=== PATIENT | male | born 1950 | race Caucasian/White ===

== ENCOUNTER → 2016-05-27 | Outpatient (CLI) | payer MEDICARE ==
[~2016-05-27] MED LIST: ACET-1757 PO; ACET325T14 PO; ASPI325T4 PO; AZIT-14 PO; CEFD300C2 PO; DIGO125T PO; DILT120C11 PO; DILT120T3 PO; DOXY100T PO; FLUT1AER INH; FLUT1DIS3 INH; GUAI-103 PO; GUAI100L11 PO; GUAI12003 PO; GUAI5SYR PO; HYDR12.53 PO; LISI-170 PO; LISI1TAB5 PO; LISI2.5T PO; LISI5TAB7 PO; OMEP-110 PO; PRED10TA PO; RIVA20TA PO
== END | disposition home or self-care (01) ==
LOC: ROC 08:35
PROVIDERS: ATTEND Radiology Radiation Oncology
DX: C34.12 Malignant neoplasm of upper lobe, left bronchus or lung (principal); C34.11 Malignant neoplasm of upper lobe, right bronchus or lung; R91.1 Solitary pulmonary nodule; J44.9 Chronic obstructive pulmonary disease, unspecified; I50.9 Heart failure, unspecified; R59.0 Localized enlarged lymph nodes; F17.200 Nicotine dependence, unspecified, uncomplicated
CPT/HCPCS: G0463

== ENCOUNTER → 2016-06-01 | Outpatient (CLI) | payer MEDICARE | END | disposition home or self-care (01) | LOC: PETCFH 08:15 | PROVIDERS: ATTEND Radiology Radiation Oncology | DX: C34.11 Malignant neoplasm of upper lobe, right bronchus or lung (principal); R59.0 Localized enlarged lymph nodes; R91.8 Other nonspecific abnormal finding of lung field; K82.8 Other specified diseases of gallbladder; N20.0 Calculus of kidney; E27.8 Other specified disorders of adrenal gland | CPT/HCPCS: 78815; A9552 ==

== ENCOUNTER 2016-07-08 05:56 | Day surgery (SDC) | payer MEDICARE ==
[~2016-07-08] VITALS: Ht 177.8 cm; Wt 68.0 kg
[~2016-07-08 05:56] MED LIST changes: -AZIT-14 PO; +AZIT250T89 PO; -CEFD300C2 PO; +CEFD300C37 PO
[2016-07-08 07:18] VITALS: BP 138/85
[2016-07-08] MEDS ORDERED: SODIUM CHLORIDE 0.9% 1,000 ML IV SCH (07:20)
[2016-07-08] MEDS ORDERED: MIDAZOLAM 1 MG/ML, 5ML ONE (08:11)
[2016-07-08] MEDS ORDERED: FENTANYL PF 100 MCG/2ML ONE (08:12)
[2016-07-08] MEDS ORDERED: NALOXONE 1 MG/ML, 2ML ONE (08:12)
== END 2016-07-08 11:35 | disposition home or self-care (01) ==
LOC: OUT 05:56
PROVIDERS: ATTEND Internal Medicine Hematology & Oncology
DX: C34.31 Malignant neoplasm of lower lobe, right bronchus or lung (principal); I10 Essential (primary) hypertension; I48.91 Unspecified atrial fibrillation; F17.210 Nicotine dependence, cigarettes, uncomplicated
CPT/HCPCS: 32405; 71010; 77012; 88305; 88341; 88342; 99156; 99157; J2250; J3010; J7030; G0461; J2310

== ENCOUNTER → 2016-11-01 | Outpatient (CLI) | payer MEDICARE ==
[~2016-11-01] MED LIST changes: +ASPI325T17 PO; -ASPI325T4 PO; +OMNIPAQUE 350 MG/ML, 100ML BOTTLE ONE
== END | disposition home or self-care (01) ==
LOC: CFH 09:38
PROVIDERS: ATTEND Internal Medicine Hematology & Oncology
DX: C34.31 Malignant neoplasm of lower lobe, right bronchus or lung (principal); R59.0 Localized enlarged lymph nodes
CPT/HCPCS: 71260; 74177; 82565; Q9967

== ENCOUNTER → 2016-11-25 | Outpatient (CLI) | payer MEDICARE ==
[~2016-11-25] MED LIST changes: +ATOR40TA78 PO; -OMNIPAQUE 350 MG/ML, 100ML BOTTLE ONE; +UMEC1DIS INH
== END | disposition home or self-care (01) ==
LOC: STAR 08:10
PROVIDERS: ATTEND Otolaryngology
DX: Z01.818 Encounter for other preprocedural examination (principal); J38.01 Paralysis of vocal cords and larynx, unilateral
CPT/HCPCS: 93005

== ENCOUNTER 2016-11-29 10:00 | Day surgery (SDC) | payer MEDICARE ==
[~2016-11-29] VITALS: Ht 177.8 cm; Wt 64.9 kg
[2016-11-29] MEDS ORDERED: LACTATED RINGERS 1,000 ML IV SCH (10:32)
[2016-11-29 10:37] VITALS: BP 125/82
[2016-11-29] MEDS ORDERED: EPINEPHRINE TOPICAL SOLN 1 MG/ML, 30ML ONE (11:56)
[2016-11-29] MEDS ORDERED: MIDAZOLAM 1 MG/ML, 5ML ONE (12:17)
[2016-11-29] MEDS ORDERED: ONDANSETRON 2MG/ML, 2ML ONE (12:17)
[2016-11-29] MEDS ORDERED: PROPOFOL 10 MG/ML, 20ML ONE (12:17)
[2016-11-29] MEDS ORDERED: SUCCINYLCHOLINE 20 MG/ML, 10ML ONE (12:17)
[2016-11-29] MEDS ORDERED: DEXAMETHASONE 4 MG/ML, 1ML ONE ×2 (12:25)
[2016-11-29] MEDS ORDERED: ALBUTEROL SULFATE 2.5 MG/3 ML NPPB PRN (13:00)
[2016-11-29] MEDS ORDERED: MIDAZOLAM 1 MG/ML, 2ML IV PRN (13:00)
[2016-11-29] MEDS ORDERED: ACETAMINOPHEN 325 MG TABLET PO PRN (13:00)
[2016-11-29] MEDS ORDERED: MEPERIDINE/PF 25MG/0.5ML IVPush PRN (13:00)
[2016-11-29] MEDS ORDERED: HYDROmorphone 1 MG/ML, 1ML IV PRN (13:00)
[2016-11-29] MEDS ORDERED: OXYcodone 5 MG/5 ML ORAL.SOL UDC PO PRN (13:00)
[2016-11-29] MEDS ORDERED: ONDANSETRON 2MG/ML, 2ML IVPush PRN (13:00)
[2016-11-29] MEDS ORDERED: FENTANYL PF 100 MCG/2ML IV PRN (13:00)
[2016-11-29] MEDS ORDERED: hydrALAzine 20 MG/ML, 1ML IV PRN (13:00)
[2016-11-29] MEDS ORDERED: PROMETHAZINE 25 MG/ML, 1ML IV PRN (13:00)
[2016-11-29] MEDS ORDERED: LABETALOL 5MG/ML, 20ML IV PRN (13:00)
== END 2016-11-29 14:42 ==
LOC: OUT 10:00
PROVIDERS: ATTEND Otolaryngology
DX: J38.01 Paralysis of vocal cords and larynx, unilateral (principal); C32.0 Malignant neoplasm of glottis; J98.59 Other diseases of mediastinum, not elsewhere classified; J44.9 Chronic obstructive pulmonary disease, unspecified; K21.9 Gastro-esophageal reflux disease without esophagitis
CPT/HCPCS: 31571; C1878; J0330; J1100; J2250; J2405; J2704

== ENCOUNTER → 2017-01-10 | Outpatient (CLI) | payer MEDICARE ==
[~2017-01-10] MED LIST changes: +OMNIPAQUE 350 MG/ML, 75ML BOTTLE ONE
== END | disposition home or self-care (01) ==
LOC: CFH 12:20
PROVIDERS: ATTEND Internal Medicine Hematology & Oncology
DX: C34.90 Malignant neoplasm of unspecified part of unspecified bronchus or lung (principal); J98.11 Atelectasis; I70.0 Atherosclerosis of aorta; R59.0 Localized enlarged lymph nodes; K76.0 Fatty (change of) liver, not elsewhere classified; M51.36 Other intervertebral disc degeneration, lumbar region
CPT/HCPCS: 71260; Q9967

== ENCOUNTER 2017-02-16 10:06 | Day surgery (SDC) | payer MEDICARE ==
[~2017-02-16] VITALS: Ht 177.8 cm; Wt 62.9 kg
[~2017-02-16 10:06] MED LIST changes: -OMNIPAQUE 350 MG/ML, 75ML BOTTLE ONE
[2017-02-16] MEDS ORDERED: LACTATED RINGERS 1,000 ML IV SCH (10:32)
[2017-02-16] MEDS ORDERED: EPINEPHRINE TOPICAL SOLN 1 MG/ML, 30ML ONE (10:33)
[2017-02-16 10:35] VITALS: BP 143/80
[2017-02-16] MEDS ORDERED: LIDOCAINE 1%, 2ML SQ PRN (11:00)
[2017-02-16] MEDS ORDERED: PROPOFOL 10 MG/ML, 20ML ONE (12:06)
[2017-02-16] MEDS ORDERED: ONDANSETRON 2MG/ML, 2ML ONE (12:06)
[2017-02-16] MEDS ORDERED: ALBUTEROL SULFATE 2.5 MG/3 ML NPPB PRN (13:00)
[2017-02-16] MEDS ORDERED: OXYcodone 5 MG/5 ML ORAL.SOL UDC PO PRN (13:00)
[2017-02-16] MEDS ORDERED: HYDROmorphone 1 MG/ML, 1ML IV PRN (13:00)
[2017-02-16] MEDS ORDERED: FENTANYL PF 100 MCG/2ML IV PRN (13:00)
[2017-02-16] MEDS ORDERED: ACETAMINOPHEN 325 MG TABLET PO PRN (13:00)
[2017-02-16] MEDS ORDERED: ONDANSETRON 2MG/ML, 2ML IVPush PRN (13:00)
[2017-02-16] MEDS ORDERED: ACETAMINOPHEN 650 MG/20.3 ML UDC ONE (13:19)
== END 2017-02-16 14:15 ==
LOC: OUT 10:06
PROVIDERS: ATTEND Otolaryngology
DX: J38.01 Paralysis of vocal cords and larynx, unilateral (principal); J38.3 Other diseases of vocal cords; I10 Essential (primary) hypertension; Z85.118 Personal history of other malignant neoplasm of bronchus and lung
CPT/HCPCS: 31570; C1878; J2405; J2704; J7120

== ENCOUNTER 2017-09-10 15:40 | Inpatient (IN) | payer MEDICARE ==
[~2017-09-10] VITALS: Ht 177.8 cm; Wt 68.5 kg
[2017-09-10] MEDS ORDERED: HYDROmorphone 2 MG/ML, 1ML ONE (16:45)
[2017-09-10] MEDS ORDERED: ONDANSETRON ODT 4 MG ONE (16:45)
[2017-09-10] MEDS ORDERED: ONDANSETRON ODT 4 MG PO ONE (17:00)
[2017-09-10] MEDS ORDERED: HYDROmorphone 1 MG/ML, 1ML IM ONE (17:00)
[2017-09-10 17:42] LABS: MEAN CORPUSCULAR HEMOGLOBIN 29.5 pg (27.5-34.5); MEAN CORPUSCULAR HGB CONC 33.6 g/dL (33.2-36.2); MEAN CORPUSCULAR VOLUME 87.6 fL (81-97); MEAN PLATELET VOLUME 8.2 fL (7.4-10.4); PLATELET COUNT 291 x10^3/uL (130-400); RED BLOOD COUNT 3.34 x10^6/uL (4.38-5.82); RED CELL DISTRIBUTION WIDTH 18.7 % (9.4-14.8)
[2017-09-10 17:49] LABS: ANION GAP 8 mmol/L (5-15); CALCIUM 8.6 mg/dL (8.5-10.1); CHLORIDE 95 mmol/L (98-107)
[2017-09-10 18:13] LABS: BASOPHILS # (AUTO) 0.06 x10^3/uL (0-0.1); BASOPHILS % (AUTO) 0 % (0-1); C-REACTIVE PROTEIN, QUANT > 19.00 mg/dL (0.02-0.49); EOSINOPHILS # (AUTO) 0.08 x10^3/uL (0-0.4); EOSINOPHILS % (AUTO) 0 % (1-7); LYMPHOCYTES # (AUTO) 0.76 x10^3/uL (1-3.4); LYMPHOCYTES % (AUTO) 4 % (22-44); MD MORPH REVIEW ONLY; MONOCYTES % (AUTO) 10 % (2-9); NEUTROPHILS # (AUTO) 16.21 x10^3/uL (1.8-6.8); NEUTROPHILS % (AUTO) 86 % (42-75); OVALOCYTES 1+; TARGET CELLS 1+
[2017-09-10 18:14] LABS: HYPOCHROMIA 1+
[2017-09-10 18:18] LABS: HCT (SEDRATE) 29.3 % (39.2-51.8)
[2017-09-10 18:22] LABS: <PLATELET ESTIMATE> ADEQUATE; <PLT MORPHOLOGY> NORMAL PLT MORPH
[2017-09-10] MEDS ORDERED: FENTANYL PF 100 MCG/2ML ONE (20:12)
[2017-09-10] MEDS ORDERED: FENTANYL PF 100 MCG/2ML IVPush ONE (20:30)
[2017-09-10] MEDS ORDERED: ENALAPRILAT 1.25 MG/ML, 2ML IVPush PRN (21:00)
[2017-09-10] MEDS ORDERED: ACETAMINOPHEN 325 MG TABLET PO PRN (21:00)
[2017-09-10] MEDS ORDERED: ONDANSETRON 2MG/ML, 2ML IVPush PRN (21:00)
[2017-09-10] MEDS ORDERED: LABETALOL 5MG/ML, 20ML IVPush PRN (21:00)
[2017-09-10] MEDS ORDERED: DOCUSATE 100 MG CAPSULE PO PRN (21:00)
[2017-09-10] MEDS ORDERED: BISACODYL 10 MG SUPP PR PRN (21:00)
[2017-09-10] MEDS: SODIUM CHLORIDE 0.9% 1,000 ML IV SCH (22:59)
[2017-09-10] MEDS: NICOTINE 7 MG/24 HR PATCH.TD24 TD SCH (23:02)
[2017-09-10] MEDS: ATORVASTATIN 40 MG TABLET PO SCH (23:03)
[2017-09-10 23:15] VITALS: BP 106/62
[2017-09-10] MEDS: morphine SULFATE 10 MG/ML, 1ML IVPush PRN (23:39)
[2017-09-11 00:13] LABS: ALANINE AMINOTRANSFERASE 21 U/L (12-78); ALBUMIN 2.6 g/dL (3.4-5.0); ANION GAP 8 mmol/L (5-15); CALCIUM 8.4 mg/dL (8.5-10.1); CHLORIDE 96 mmol/L (98-107); CREATININE 0.73 mg/dL (0.7-1.3)
[2017-09-11 00:15] LABS: ALKALINE PHOSPHATASE 78 U/L (45-117); BILIRUBIN,TOTAL 0.4 mg/dL (0.2-1.0); TOTAL PROTEIN 5.4 g/dL (6.4-8.2)
[2017-09-11] MEDS: DILTIAZEM 120 MG TABLET PO SCH ×3 (00:19→20:56)
[2017-09-11 00:30] VITALS: BP 108/63
[2017-09-11] MEDS: morphine SULFATE 10 MG/ML, 1ML IVPush PRN ×5 (04:19→20:57)
[2017-09-11 05:52] LABS: MEAN CORPUSCULAR HEMOGLOBIN 29.8 pg (27.5-34.5); MEAN CORPUSCULAR HGB CONC 33.9 g/dL (33.2-36.2); MEAN CORPUSCULAR VOLUME 87.9 fL (81-97); MEAN PLATELET VOLUME 8.6 fL (7.4-10.4); PLATELET COUNT 273 x10^3/uL (130-400); RED BLOOD COUNT 3.04 x10^6/uL (4.38-5.82); RED CELL DISTRIBUTION WIDTH 18.5 % (9.4-14.8)
[2017-09-11 06:30] LABS: BASOPHILS % (AUTO) 0 % (0-1); EOSINOPHILS # (AUTO) 0.33 x10^3/uL (0-0.4); EOSINOPHILS % (AUTO) 2 % (1-7); LYMPHOCYTES % (AUTO) 6 % (22-44); MD SCAN; MONOCYTES # (AUTO) 2.28 x10^3/uL (0.2-0.8); MONOCYTES % (AUTO) 14 % (2-9); NEUTROPHILS # (AUTO) 12.91 x10^3/uL (1.8-6.8); NEUTROPHILS % (AUTO) 78 % (42-75)
[2017-09-11 07:11] VITALS: BP 91/67
[2017-09-11] MEDS ORDERED: RIVAROXABAN 20 MG TABLET PO SCH (09:00)
[2017-09-11 10:06] LABS: MICROSCOPIC AUTO
[2017-09-11 10:07] LABS: CULTURE INDICATED? NO
[2017-09-11] MEDS: SENNA/DOCUSATE TABLET PO SCH (10:23)
[2017-09-11] MEDS: OMEPRAZOLE 20 MG CAPSULE.DR PO SCH (10:24)
[2017-09-11] MEDS ORDERED: GADOBUTROL 7.5 MMOL/7.5 ML PFS ONE (11:35)
[2017-09-11] MEDS: OXYcodone/APAP 5/325MG TABLET PO PRN ×2 (11:59→18:52)
[2017-09-11 13:11] VITALS: BP 89/43
[2017-09-11] MEDS: SODIUM CHLORIDE 0.9% 1,000 ML IV SCH (17:01)
[2017-09-11] MEDS: ONDANSETRON ODT 4 MG PO PRN (17:05)
[2017-09-11 19:58] VITALS: BP 98/58
[2017-09-11] MEDS: ATORVASTATIN 40 MG TABLET PO SCH (20:56)
[2017-09-11] MEDS: NICOTINE 7 MG/24 HR PATCH.TD24 TD SCH (20:57)
[2017-09-12] MEDS: morphine SULFATE 10 MG/ML, 1ML IVPush PRN ×6 (00:27→18:30)
[2017-09-12 01:14] VITALS: BP 93/50
[2017-09-12] MEDS: SODIUM CHLORIDE 0.9% 1,000 ML IV SCH ×3 (06:35→20:53)
[2017-09-12 07:37] VITALS: BP 93/48
[2017-09-12] MEDS: OMEPRAZOLE 20 MG CAPSULE.DR PO SCH (08:08)
[2017-09-12] MEDS: DILTIAZEM 120 MG TABLET PO SCH ×2 (08:08→20:53)
[2017-09-12] MEDS: SENNA/DOCUSATE TABLET PO SCH (08:09)
[2017-09-12] MEDS: ONDANSETRON ODT 4 MG PO PRN ×2 (08:14→17:10)
[2017-09-12 09:14] LABS: ANION GAP 6 mmol/L (5-15); CALCIUM 7.9 mg/dL (8.5-10.1); CHLORIDE 100 mmol/L (98-107); CREATININE 0.75 mg/dL (0.7-1.3)
[2017-09-12 09:15] LABS: ALBUMIN 2.5 g/dL (3.4-5.0)
[2017-09-12 09:19] LABS: MEAN CORPUSCULAR HEMOGLOBIN 29.9 pg (27.5-34.5); PLATELET COUNT 254 x10^3/uL (130-400); RED BLOOD COUNT 2.95 x10^6/uL (4.38-5.82)
[2017-09-12 10:20] LABS: BASOPHILS # (AUTO) 0.01 x10^3/uL (0-0.1); BASOPHILS % (AUTO) 0 % (0-1); EOSINOPHILS # (AUTO) 0.12 x10^3/uL (0-0.4); EOSINOPHILS % (AUTO) 1 % (1-7); LYMPHOCYTES # (AUTO) 0.49 x10^3/uL (1-3.4); LYMPHOCYTES % (AUTO) 3 % (22-44); MD SCAN; MONOCYTES # (AUTO) 1.43 x10^3/uL (0.2-0.8); MONOCYTES % (AUTO) 9 % (2-9); NEUTROPHILS # (AUTO) 13.95 x10^3/uL (1.8-6.8); NEUTROPHILS % (AUTO) 87 % (42-75)
[2017-09-12] MEDS: OXYcodone/APAP 5/325MG TABLET PO PRN ×3 (10:26→20:53)
[2017-09-12] MEDS: BENZONATATE 100 MG CAPSULE PO SCH ×3 (11:29→20:53)
[2017-09-12 13:23] VITALS: BP 106/54
[2017-09-12 20:48] VITALS: BP 126/68
[2017-09-12] MEDS: ATORVASTATIN 40 MG TABLET PO SCH (20:53)
[2017-09-12] MEDS: NICOTINE 7 MG/24 HR PATCH.TD24 TD SCH (20:59)
[2017-09-13 01:37] VITALS: BP 122/74
[2017-09-13] MEDS: morphine SULFATE 10 MG/ML, 1ML IVPush PRN ×5 (01:51→20:13)
[2017-09-13 07:01] VITALS: BP 100/52
[2017-09-13] MEDS: DILTIAZEM 120 MG TABLET PO SCH (07:41)
[2017-09-13] MEDS: SENNA/DOCUSATE TABLET PO SCH (07:42)
[2017-09-13] MEDS: BENZONATATE 100 MG CAPSULE PO SCH ×3 (07:42→21:00)
[2017-09-13] MEDS: ONDANSETRON ODT 4 MG PO PRN ×2 (07:42→12:11)
[2017-09-13] MEDS: OMEPRAZOLE 20 MG CAPSULE.DR PO SCH (07:42)
[2017-09-13] MEDS: OXYcodone/APAP 5/325MG TABLET PO PRN ×3 (07:42→20:35)
[2017-09-13] MEDS: DILTIAZEM 120 MG CAP.ER.24H PO SCH (09:00)
[2017-09-13 13:25] VITALS: BP 105/55
[2017-09-13] MEDS ORDERED: MIDAZOLAM 1 MG/ML, 2ML ONE (16:18)
[2017-09-13] MEDS ORDERED: WATER-INJECTION,STERILE 10 ML IV ONE (16:19)
[2017-09-13] MEDS ORDERED: FENTANYL PF 250 MCG/5ML ONE (16:19)
[2017-09-13] MEDS ORDERED: PROPOFOL 10 MG/ML, 20ML ONE (16:19)
[2017-09-13] MEDS ORDERED: NEOSTIGMINE 1 MG/ML, 10ML ONE (16:19)
[2017-09-13] MEDS ORDERED: GLYCOPYRROLATE 0.4 MG/2 ML, 2ML ONE ×2 (16:19→17:22)
[2017-09-13] MEDS ORDERED: ROCURONIUM 10MG/ML,5ML ONE (16:19)
[2017-09-13] MEDS ORDERED: CEFAZOLIN 1,000 MG ONE ×2 (16:20)
[2017-09-13] MEDS ORDERED: LABETALOL 5MG/ML, 20ML IV PRN (16:30)
[2017-09-13] MEDS ORDERED: PROMETHAZINE 12.5 MG SUPP PR PRN (16:30)
[2017-09-13] MEDS ORDERED: MEPERIDINE/PF 25MG/0.5ML IVPush PRN (16:30)
[2017-09-13] MEDS ORDERED: hydrALAzine 20 MG/ML, 1ML IV PRN (16:30)
[2017-09-13] MEDS ORDERED: ONDANSETRON ODT 8 MG PO PRN (16:30)
[2017-09-13] MEDS ORDERED: ACETAMINOPHEN 325 MG TABLET PO PRN (16:30)
[2017-09-13] MEDS ORDERED: PROMETHAZINE 25 MG SUPP PR PRN (16:30)
[2017-09-13] MEDS ORDERED: ALBUTEROL SULFATE 2.5 MG/3 ML NPPB PRN (16:30)
[2017-09-13] MEDS ORDERED: MORPHINE SULFATE 4 MG/ML, 1ML IVPush PRN (16:30)
[2017-09-13] MEDS ORDERED: HYDROmorphone 1 MG/ML, 1ML IV PRN (16:30)
[2017-09-13] MEDS ORDERED: OXYcodone 5 MG/5 ML ORAL.SOL UDC PO PRN (16:30)
[2017-09-13] MEDS ORDERED: ONDANSETRON 2MG/ML, 2ML IV PRN (16:30)
[2017-09-13] MEDS ORDERED: PROMETHAZINE 25 MG/ML, 1ML IV PRN (16:30)
[2017-09-13] MEDS ORDERED: ACETAMINOPHEN 650 MG/20.3 ML UDC ONE (18:13)
[2017-09-13] MEDS ORDERED: FENTANYL PF 100 MCG/2ML ONE (18:16)
[2017-09-13] MEDS: FENTANYL PF 100 MCG/2ML IV PRN ×3 (18:25→19:00)
[2017-09-13] MEDS ORDERED: OXYcodone 5 MG/5 ML ORAL.SOL UDC ONE (19:06)
[2017-09-13] MEDS: SODIUM CHLORIDE 0.9% 1,000 ML IV SCH (20:15)
[2017-09-13] MEDS: NICOTINE 7 MG/24 HR PATCH.TD24 TD SCH (21:00)
[2017-09-13] MEDS ORDERED: FENTANYL PF 100 MCG/2ML IVPush PRN (23:30)
[2017-09-14] MEDS: ALBUTEROL/IPRATROPIUM 2.5MG/0.5MG, 3 ML NPPB SCH ×4 (02:17→10:26)
[2017-09-14] MEDS: OXYcodone/APAP 5/325MG TABLET PO PRN ×3 (03:06→11:49)
[2017-09-14] MEDS: FENTANYL PF 100 MCG/2ML IV PRN (04:55)
[2017-09-14] MEDS: DILTIAZEM 120 MG CAP.ER.24H PO SCH (08:45)
[2017-09-14] MEDS: OMEPRAZOLE 20 MG CAPSULE.DR PO SCH (08:45)
[2017-09-14] MEDS: SENNA/DOCUSATE TABLET PO SCH (08:45)
[2017-09-14] MEDS: BENZONATATE 100 MG CAPSULE PO SCH ×3 (08:45→20:19)
[2017-09-14] MEDS: morphine SULFATE 10 MG/ML, 1ML IVPush PRN ×2 (08:45→13:18)
[2017-09-14] MEDS ORDERED: TAMSULOSIN 0.4 MG CAP.ER.24H PO ONE (09:00)
[2017-09-14] MEDS: CEFAZOLIN PMX 2GM/50ML 50 ML IVPB SCH ×2 (09:02→17:02)
[2017-09-14] MEDS ORDERED: SODIUM CHLORIDE 0.9%, 500ML IVBOLUS ONE (11:00)
[2017-09-14] MEDS ORDERED: ALBUTEROL/IPRATROPIUM 2.5MG/0.5MG, 3 ML NPPB SCH (11:00)
[2017-09-14] MEDS: SODIUM CHLORIDE 0.9% 1,000 ML IV SCH (11:03)
[2017-09-14 12:05] LABS: MEAN CORPUSCULAR HEMOGLOBIN 28.2 pg (27.5-34.5); MEAN CORPUSCULAR HGB CONC 32.3 g/dL (33.2-36.2); MEAN CORPUSCULAR VOLUME 87.5 fL (81-97); MEAN PLATELET VOLUME 7.5 fL (7.4-10.4); PLATELET COUNT 245 x10^3/uL (130-400); RED BLOOD COUNT 2.59 x10^6/uL (4.38-5.82)
[2017-09-14 12:06] LABS: HEMOGRAM NOTE RECHECKED
[2017-09-14 12:08] LABS: ANION GAP 7 mmol/L (5-15); CALCIUM 7.6 mg/dL (8.5-10.1); CHLORIDE 104 mmol/L (98-107)
[2017-09-14 12:28] LABS: BASOPHILS % (AUTO) 0 % (0-1); EOSINOPHILS # (AUTO) 0.09 x10^3/uL (0-0.4); EOSINOPHILS % (AUTO) 1 % (1-7); LYMPHOCYTES # (AUTO) 0.43 x10^3/uL (1-3.4); LYMPHOCYTES % (AUTO) 3 % (22-44); MD SCAN; MONOCYTES # (AUTO) 1.97 x10^3/uL (0.2-0.8); MONOCYTES % (AUTO) 11 % (2-9); NEUTROPHILS # (AUTO) 14.77 x10^3/uL (1.8-6.8); NEUTROPHILS % (AUTO) 86 % (42-75)
[2017-09-14] MEDS ORDERED: FENTANYL PF 100 MCG/2ML IVPush PRN (12:30)
[2017-09-14] MEDS ORDERED: FENTANYL 75 MCG PATCH TD SCH (13:30)
[2017-09-14 15:10] VITALS: BP 94/52
[2017-09-14] MEDS ORDERED: FUROSEMIDE 20 MG/2 ML ONE ×2 (15:19→16:13)
[2017-09-14 15:32] VITALS: BP 101/56
[2017-09-14] MEDS: FENTANYL 1500 MCG/30 ML PCA IV PRN (16:17)
[2017-09-14] MEDS ORDERED: FUROSEMIDE 20 MG/2 ML IV ONE ×2 (16:30→18:00)
[2017-09-14 17:01] VITALS: BP 107/62
[2017-09-14] MEDS ORDERED: ENOXAPARIN 40 MG/0.4 ML SQ SCH (18:00)
[2017-09-14] MEDS ORDERED: DIGOXIN 0.25 MG/ML, 2ML ONE (18:37)
[2017-09-14] MEDS ORDERED: DIGOXIN 0.25 MG/ML, 2ML IVPush ONE (19:00)
[2017-09-15] MEDS: CEFAZOLIN PMX 2GM/50ML 50 ML IVPB SCH ×2 (00:03→07:55)
[2017-09-15] MEDS: SODIUM CHLORIDE 0.9% 1,000 ML IV SCH (00:04)
[2017-09-15] MEDS ORDERED: DIGOXIN 0.25 MG/ML, 2ML IVPush ONE (01:00)
[2017-09-15] MEDS: ALBUTEROL/IPRATROPIUM 2.5MG/0.5MG, 3 ML NPPB PRN (02:10)
[2017-09-15 04:00] VITALS: BP 109/49
[2017-09-15 04:50] LABS: MEAN CORPUSCULAR HEMOGLOBIN 28.7 pg (27.5-34.5); MEAN CORPUSCULAR HGB CONC 32.7 g/dL (33.2-36.2); MEAN PLATELET VOLUME 8.1 fL (7.4-10.4); PLATELET COUNT 241 x10^3/uL (130-400); RED BLOOD COUNT 3.05 x10^6/uL (4.38-5.82); RED CELL DISTRIBUTION WIDTH 16.9 % (9.4-14.8)
[2017-09-15 04:58] LABS: ALBUMIN 2.2 g/dL (3.4-5.0); ANION GAP 6 mmol/L (5-15); CHLORIDE 101 mmol/L (98-107)
[2017-09-15 05:09] LABS: BASOPHILS % (AUTO) 0 % (0-1); EOSINOPHILS # (AUTO) 0.11 x10^3/uL (0-0.4); EOSINOPHILS % (AUTO) 1 % (1-7); LYMPHOCYTES # (AUTO) 0.53 x10^3/uL (1-3.4); LYMPHOCYTES % (AUTO) 3 % (22-44); MD SCAN; MONOCYTES # (AUTO) 1.75 x10^3/uL (0.2-0.8); MONOCYTES % (AUTO) 9 % (2-9); NEUTROPHILS # (AUTO) 16.95 x10^3/uL (1.8-6.8); NEUTROPHILS % (AUTO) 88 % (42-75)
[2017-09-15 05:14] LABS: ALANINE AMINOTRANSFERASE 16 U/L (12-78); ALKALINE PHOSPHATASE 87 U/L (45-117); BILIRUBIN,TOTAL 0.4 mg/dL (0.2-1.0); CREATININE 0.84 mg/dL (0.7-1.3); TOTAL PROTEIN 5.4 g/dL (6.4-8.2)
[2017-09-15] MEDS ORDERED: MAGNESIUM SULFATE PMX 4GM/100M 100 ML IVPB ONE (07:30)
[2017-09-15] MEDS: DILTIAZEM 120 MG CAP.ER.24H PO SCH (07:55)
[2017-09-15] MEDS: BENZONATATE 100 MG CAPSULE PO SCH ×3 (07:56→21:20)
[2017-09-15] MEDS: OMEPRAZOLE 20 MG CAPSULE.DR PO SCH (07:56)
[2017-09-15] MEDS: TAMSULOSIN 0.4 MG CAP.ER.24H PO SCH (07:56)
[2017-09-15] MEDS: SENNA/DOCUSATE TABLET PO SCH ×2 (07:56→21:20)
[2017-09-15] MEDS ORDERED: BISACODYL 10 MG SUPP PR PRN (08:30)
[2017-09-15] MEDS ORDERED: LACTULOSE 20 GM/30 ML UDC PO PRN (09:00)
[2017-09-15] MEDS: DOCUSATE 50 MG/5 ML, 10ML UDC NG SCH (09:00)
[2017-09-15] MEDS: DOCUSATE 100 MG CAPSULE PO SCH (09:59)
[2017-09-15] MEDS: DIGOXIN 0.25 MG TABLET PO SCH (09:59)
[2017-09-15] MEDS: FUROSEMIDE 20 MG/2 ML IV SCH (11:31)
[2017-09-15] MEDS: DEXAMETHASONE 1 MG TABLET PO SCH (18:52)
[2017-09-15] MEDS: SENNOSIDES 8.8 MG/5 ML ORAL SOL NG SCH (21:00)
[2017-09-15] MEDS: FENTANYL 1500 MCG/30 ML PCA IV PRN (21:22)
[2017-09-16 04:00] VITALS: BP 112/56
[2017-09-16 04:57] LABS: ALBUMIN 2.1 g/dL (3.4-5.0); ANION GAP 5 mmol/L (5-15); CALCIUM 7.9 mg/dL (8.5-10.1); CHLORIDE 97 mmol/L (98-107)
[2017-09-16 05:01] LABS: ALANINE AMINOTRANSFERASE 13 U/L (12-78); ALKALINE PHOSPHATASE 88 U/L (45-117); BILIRUBIN,TOTAL 0.4 mg/dL (0.2-1.0); CREATININE 0.56 mg/dL (0.7-1.3); TOTAL PROTEIN 5.5 g/dL (6.4-8.2)
[2017-09-16 05:03] LABS: MEAN CORPUSCULAR HEMOGLOBIN 29.1 pg (27.5-34.5); MEAN CORPUSCULAR VOLUME 88.3 fL (81-97); MEAN PLATELET VOLUME 8.1 fL (7.4-10.4); PLATELET COUNT 275 x10^3/uL (130-400); RED BLOOD COUNT 2.91 x10^6/uL (4.38-5.82); RED CELL DISTRIBUTION WIDTH 17.2 % (9.4-14.8)
[2017-09-16 05:42] LABS: BASOPHILS % (AUTO) 0 % (0-1); EOSINOPHILS # (AUTO) 0.01 x10^3/uL (0-0.4); EOSINOPHILS % (AUTO) 0 % (1-7); LYMPHOCYTES # (AUTO) 0.61 x10^3/uL (1-3.4); LYMPHOCYTES % (AUTO) 3 % (22-44); MD SCAN; MONOCYTES # (AUTO) 0.53 x10^3/uL (0.2-0.8); MONOCYTES % (AUTO) 3 % (2-9); NEUTROPHILS # (AUTO) 19.82 x10^3/uL (1.8-6.8); NEUTROPHILS % (AUTO) 95 % (42-75)
[2017-09-16] MEDS: OMEPRAZOLE 20 MG CAPSULE.DR PO SCH (08:57)
[2017-09-16] MEDS: FUROSEMIDE 20 MG/2 ML IV SCH (08:57)
[2017-09-16] MEDS: DOCUSATE 100 MG CAPSULE PO SCH (08:57)
[2017-09-16] MEDS: DIGOXIN 0.25 MG TABLET PO SCH (08:57)
[2017-09-16] MEDS: TAMSULOSIN 0.4 MG CAP.ER.24H PO SCH (08:57)
[2017-09-16] MEDS: DEXAMETHASONE 1 MG TABLET PO SCH ×2 (08:57→17:11)
[2017-09-16] MEDS: KETOROLAC 30 MG/1 ML IV PRN ×3 (08:58→21:20)
[2017-09-16] MEDS: SENNA/DOCUSATE TABLET PO SCH ×2 (08:58→21:20)
[2017-09-16] MEDS: BENZONATATE 100 MG CAPSULE PO SCH ×3 (08:58→21:19)
[2017-09-16] MEDS: DILTIAZEM 120 MG CAP.ER.24H PO SCH (08:59)
[2017-09-16] MEDS: DOCUSATE 50 MG/5 ML, 10ML UDC NG SCH (08:59)
[2017-09-16] MEDS ORDERED: FENTANYL PF 100 MCG/2ML IVPush PRN (11:30)
[2017-09-16 13:40] VITALS: BP 146/72
[2017-09-16] MEDS: SENNOSIDES 8.8 MG/5 ML ORAL SOL NG SCH (21:00)
[2017-09-16 21:30] VITALS: BP 134/71
[2017-09-16] MEDS: ALBUTEROL/IPRATROPIUM 2.5MG/0.5MG, 3 ML NPPB PRN (22:08)
[2017-09-17 01:20] VITALS: BP 117/49
[2017-09-17 05:41] LABS: MEAN CORPUSCULAR HEMOGLOBIN 29.2 pg (27.5-34.5); MEAN CORPUSCULAR HGB CONC 32.9 g/dL (33.2-36.2); MEAN CORPUSCULAR VOLUME 88.8 fL (81-97); MEAN PLATELET VOLUME 7.9 fL (7.4-10.4); PLATELET COUNT 339 x10^3/uL (130-400); RED BLOOD COUNT 3.29 x10^6/uL (4.38-5.82); RED CELL DISTRIBUTION WIDTH 17.1 % (9.4-14.8)
[2017-09-17 06:28] LABS: BASOPHILS % (AUTO) 0 % (0-1); EOSINOPHILS # (AUTO) 0.01 x10^3/uL (0-0.4); EOSINOPHILS % (AUTO) 0 % (1-7); LYMPHOCYTES # (AUTO) 0.38 x10^3/uL (1-3.4); LYMPHOCYTES % (AUTO) 2 % (22-44); MD SCAN; MONOCYTES # (AUTO) 0.56 x10^3/uL (0.2-0.8); MONOCYTES % (AUTO) 3 % (2-9); NEUTROPHILS # (AUTO) 19.04 x10^3/uL (1.8-6.8); NEUTROPHILS % (AUTO) 95 % (42-75)
[2017-09-17 07:26] VITALS: BP 125/69
[2017-09-17] MEDS: DOCUSATE 50 MG/5 ML, 10ML UDC NG SCH (09:00)
[2017-09-17] MEDS: DILTIAZEM 120 MG CAP.ER.24H PO SCH (09:00)
[2017-09-17] MEDS: TAMSULOSIN 0.4 MG CAP.ER.24H PO SCH (09:10)
[2017-09-17] MEDS: DIGOXIN 0.25 MG TABLET PO SCH (09:10)
[2017-09-17] MEDS: SENNA/DOCUSATE TABLET PO SCH (09:11)
[2017-09-17] MEDS: OMEPRAZOLE 20 MG CAPSULE.DR PO SCH (09:11)
[2017-09-17] MEDS: DEXAMETHASONE 1 MG TABLET PO SCH ×2 (09:11→16:21)
[2017-09-17] MEDS: DOCUSATE 100 MG CAPSULE PO SCH (09:12)
[2017-09-17] MEDS: KETOROLAC 30 MG/1 ML IV PRN ×2 (09:13→16:36)
[2017-09-17] MEDS: BENZONATATE 100 MG CAPSULE PO SCH ×3 (09:49→20:12)
[2017-09-17 13:24] VITALS: BP 118/63
[2017-09-17] MEDS ORDERED: FENTANYL REMOVE PATCH NOTE XX SCH (14:00)
[2017-09-17] MEDS: OXYcodone IR 5MG TABLET PO PRN ×2 (14:40→19:22)
[2017-09-17 20:51] VITALS: BP 145/69
[2017-09-18] MEDS: OXYcodone IR 5MG TABLET PO PRN ×6 (00:22→17:08)
[2017-09-18 02:11] VITALS: BP 131/71
[2017-09-18 04:55] LABS: BASOPHILS % (AUTO) 0 % (0-1); EOSINOPHILS # (AUTO) 0.01 x10^3/uL (0-0.4); EOSINOPHILS % (AUTO) 0 % (1-7); LYMPHOCYTES # (AUTO) 0.42 x10^3/uL (1-3.4); LYMPHOCYTES % (AUTO) 3 % (22-44); MD NO; MEAN CORPUSCULAR HEMOGLOBIN 29.6 pg (27.5-34.5); MEAN CORPUSCULAR HGB CONC 33.2 g/dL (33.2-36.2); MEAN CORPUSCULAR VOLUME 89.2 fL (81-97); MEAN PLATELET VOLUME 7.6 fL (7.4-10.4); MONOCYTES # (AUTO) 0.42 x10^3/uL (0.2-0.8); MONOCYTES % (AUTO) 3 % (2-9); NEUTROPHILS # (AUTO) 11.69 x10^3/uL (1.8-6.8); NEUTROPHILS % (AUTO) 93 % (42-75); PLATELET COUNT 349 x10^3/uL (130-400); RED BLOOD COUNT 3.06 x10^6/uL (4.38-5.82); RED CELL DISTRIBUTION WIDTH 17.5 % (9.4-14.8)
[2017-09-18 07:25] VITALS: BP 147/67
[2017-09-18] MEDS: DEXAMETHASONE 1 MG TABLET PO SCH ×2 (07:46→16:20)
[2017-09-18] MEDS: TAMSULOSIN 0.4 MG CAP.ER.24H PO SCH (07:46)
[2017-09-18] MEDS: BENZONATATE 100 MG CAPSULE PO SCH ×3 (07:46→20:15)
[2017-09-18] MEDS: DIGOXIN 0.25 MG TABLET PO SCH (07:47)
[2017-09-18] MEDS: DOCUSATE 100 MG CAPSULE PO SCH (07:47)
[2017-09-18] MEDS: OMEPRAZOLE 20 MG CAPSULE.DR PO SCH (07:47)
[2017-09-18] MEDS: DILTIAZEM 120 MG CAP.ER.24H PO SCH (07:48)
[2017-09-18] MEDS: SENNA/DOCUSATE TABLET PO SCH (07:48)
[2017-09-18] MEDS: DOCUSATE 50 MG/5 ML, 10ML UDC NG SCH (07:53)
[2017-09-18] MEDS: KETOROLAC 30 MG/1 ML IV PRN ×2 (08:45→19:40)
[2017-09-18] MEDS: ALBUTEROL/IPRATROPIUM 2.5MG/0.5MG, 3 ML NPPB PRN (08:55)
[2017-09-18] MEDS: OxyconTIN ER 15 MG TAB.ER PO SCH (13:08)
[2017-09-18 14:00] VITALS: BP 132/69
[2017-09-18] MEDS: ONDANSETRON ODT 4 MG PO PRN (19:40)
[2017-09-18 20:21] VITALS: BP 145/71
[2017-09-19] MEDS: OxyconTIN ER 15 MG TAB.ER PO SCH ×2 (00:11→12:18)
[2017-09-19 03:11] VITALS: BP 133/72
[2017-09-19] MEDS: OXYcodone IR 5MG TABLET PO PRN ×2 (05:21→10:50)
[2017-09-19] MEDS: SENNA/DOCUSATE TABLET PO SCH (07:41)
[2017-09-19] MEDS: TAMSULOSIN 0.4 MG CAP.ER.24H PO SCH (07:42)
[2017-09-19] MEDS: DILTIAZEM 120 MG CAP.ER.24H PO SCH (07:42)
[2017-09-19] MEDS: BENZONATATE 100 MG CAPSULE PO SCH (07:43)
[2017-09-19] MEDS: OMEPRAZOLE 20 MG CAPSULE.DR PO SCH (07:43)
[2017-09-19] MEDS: DIGOXIN 0.25 MG TABLET PO SCH (07:43)
[2017-09-19] MEDS: DEXAMETHASONE 1 MG TABLET PO SCH (07:43)
[2017-09-19 07:49] VITALS: BP 131/76
[2017-09-19] MEDS: DOCUSATE 50 MG/5 ML, 10ML UDC NG SCH (07:49)
[2017-09-19] MEDS: DOCUSATE 100 MG CAPSULE PO SCH (08:03)
[2017-09-19] MEDS: ALBUTEROL/IPRATROPIUM 2.5MG/0.5MG, 3 ML NPPB PRN (08:20)
[2017-09-19] MEDS ORDERED: DEXA1TAB5 PO (11:28)
[2017-09-19] MEDS ORDERED: LACT20SO13 PO (11:28)
[2017-09-19] MEDS ORDERED: DIGO250T PO (11:28)
[2017-09-19] MEDS ORDERED: TAMS-11 PO (11:28)
[2017-09-19] MEDS ORDERED: DOCU-131 PO (12:30)
[2017-09-19] MEDS ORDERED: OXYC5CAP2 PO (13:08)
[2017-09-19] MEDS ORDERED: OXYC15TA60 PO (13:09)
== END 2017-09-19 13:23 | disposition home health service (06) | DRG 480 ==
LOC: ED 20:04 → EDIP 20:55 → 3NE 21:36 → 3NW 09-11 04:48 → CCU 09-13 19:46 → 3NW 09-16 10:45 → DCLOUNGE 09-19 13:10
PROVIDERS: ADMIT Internal Medicine; ATTEND Internal Medicine
PROC: 5A09357 Assistance with Respiratory Ventilation, Less than 24 Consecutive Hours, Continuous Positive Airway Pressure (ICD-10-PCS; 2017-09-13)
PROC: 0QH636Z Insertion of Intramedullary Internal Fixation Device into Right Upper Femur, Percutaneous Approach (ICD-10-PCS; principal; 2017-09-13 14:30)
PROC: 30233N1 Transfusion of Nonautologous Red Blood Cells into Peripheral Vein, Percutaneous Approach (ICD-10-PCS; 2017-09-14)
DX: M84.451A Pathological fracture, right femur, initial encounter for fracture (principal); E43 Unspecified severe protein-calorie malnutrition; J96.20 Acute and chronic respiratory failure, unspecified whether with hypoxia or hypercapnia; C79.51 Secondary malignant neoplasm of bone; C79.31 Secondary malignant neoplasm of brain; C34.90 Malignant neoplasm of unspecified part of unspecified bronchus or lung; C78.7 Secondary malignant neoplasm of liver and intrahepatic bile duct; C79.72 Secondary malignant neoplasm of left adrenal gland; D62 Acute posthemorrhagic anemia; E87.1 Hypo-osmolality and hyponatremia; E87.3 Alkalosis; Z94.81 Bone marrow transplant status; C95.91 Leukemia, unspecified, in remission; M84.459A Pathological fracture, hip, unspecified, initial encounter for fracture; E78.5 Hyperlipidemia, unspecified; F17.200 Nicotine dependence, unspecified, uncomplicated; G89.29 Other chronic pain; I48.91 Unspecified atrial fibrillation; J38.00 Paralysis of vocal cords and larynx, unspecified; J44.9 Chronic obstructive pulmonary disease, unspecified; K21.9 Gastro-esophageal reflux disease without esophagitis; K80.20 Calculus of gallbladder without cholecystitis without obstruction; N20.0 Calculus of kidney; T38.0X5A Adverse effect of glucocorticoids and synthetic analogues, initial encounter; Z66 Do not resuscitate; I11.0 Hypertensive heart disease with heart failure; I50.9 Heart failure, unspecified; Z85.46 Personal history of malignant neoplasm of prostate; Z71.6 Tobacco abuse counseling; Z80.1 Family history of malignant neoplasm of trachea, bronchus and lung; Z82.49 Family history of ischemic heart disease and other diseases of the circulatory system; Z99.81 Dependence on supplemental oxygen; Z72.89 Other problems related to lifestyle; Z87.01 Personal history of pneumonia (recurrent); Z90.49 Acquired absence of other specified parts of digestive tract; Z68.21 Body mass index [BMI] 21.0-21.9, adult
CPT/HCPCS: 36415; 70553; 71045; 71260; 74177; 76000; 78306; 80048; 80053; 80162; 81001; 82040; 82803; 83735; 84100; 85014; 85018; 85025; 85651; 86140; 86304; 86850; 86900; 86923; 87040; 87081; 88304; 88311; 88341; 88342; 93005; 94640; 94660; 96372; 96374; A9585; C1713; J0690; J1170; J1885; J2250; J2405; J2704; J2710; J3010; J7613; J7620; Q0162; A9503; C9898; G0461; J1160; J1940; J2270; J3475; J7030; J7040; P9040